=== PATIENT | male | born 1970 | race Hispanic/Latino ===

== ENCOUNTER 2017-08-12 22:36 | Emergency (ER) | payer OTHER ==
[~2017-08-12] VITALS: Ht 180.3 cm; Wt 116.1 kg
[2017-08-12] MEDS ORDERED: SODIUM CHLORIDE 0.9% 1000ML 1,000 ML IV STA (23:07)
[2017-08-12] MEDS ORDERED: GLIMEPIRIDE2 MG PO (23:12)
[2017-08-12] MEDS ORDERED: METFORMIN HCL500 MG PO (23:12)
[2017-08-12] MEDS ORDERED: COLACE100 MG PO (23:12)
[2017-08-12] MEDS ORDERED: PANTOPRAZOLE SO40 MG PO (23:12)
[2017-08-12] MEDS ORDERED: LORAZEPAM0.5 MG PO (23:12)
[2017-08-12] MEDS ORDERED: ECOTRIN81 MG (23:12)
[2017-08-12] MEDS ORDERED: GABAPENTIN300 MG PO (23:12)
[2017-08-12] MEDS ORDERED: ATORVASTATIN CA20 MG PO (23:12)
[2017-08-12] MEDS ORDERED: METOCLOPRAMIDE HCL 10 MG/2ML VIAL IV ONE (23:30)
== END 2017-08-13 00:55 | disposition home or self-care (01) ==
LOC: FSED 22:36
DX: R11.2 Nausea with vomiting, unspecified (principal); R10.9 Unspecified abdominal pain; R19.7 Diarrhea, unspecified; E86.9 Volume depletion, unspecified; K52.9 Noninfective gastroenteritis and colitis, unspecified; A04.4 Other intestinal Escherichia coli infections
CPT/HCPCS: 74177; 80053; 81003; 85025; 99284; J2765; J7030

== ENCOUNTER 2019-05-29 16:27 | Emergency (ER) | payer OTHER ==
[~2019-05-29] VITALS: Ht 180.3 cm; Wt 102.1 kg
[~2019-05-29 16:27] MED LIST: ATORVASTATIN CA20 MG PO; COLACE100 MG PO; ECOTRIN81 MG; GABAPENTIN300 MG PO; GLIMEPIRIDE2 MG PO; LORAZEPAM0.5 MG PO; METFORMIN HCL500 MG PO; PANTOPRAZOLE SO40 MG PO
--- OUTSIDE RECORDS SUMMARY | 2019-05-29 16:32 | XMS REPORT | Summary of Care ---
Author Author [facility] Organization [facility] Address Unknown Phone Unavailable Care Team Providers Care Tool Repairer Name Role Phone PCP Unavailable Reason for Visit * Reason Comments Annual Exam * Consult, Test & Treat (Routine) Referred By Contact Referred To Contact Status Reason Specialty Diagnoses / Procedures Referral, Self Tanja Harrison OD [address] [place] [address] Authorization Optometry / Diagnoses Not Needed Ophthalmology annual eye exam, eyemed annual eye exam, eyemed P rocedures [id number] Encounter Details Care Team Description Date Type Department Tanja Harrison OD [address] [place] [address] Annual Exam 12/21/2018 Office Visit [facility] Ophthalmology [address] [place] [id number] Allergies No Known Allergiesdocumented as of this encounter (statuses as of 12/21/2018) Medications End Date Status Medication Sig Dispensed Refills Start Date Active metformin (GLUCOPHAGE) 0 500 MG tablet 8 Active lisinopril (PRINIVIL, 0 ZESTRIL) 10 MG tablet 8 Active atorvastatin (LIPITOR) 40 0 MG tablet 8 Active gabapentin (NEURONTIN) 0 600 MG tablet 8 Active glyBURIDE (DIABETA) 5 MG 0 tablet 8 Active ONETOUCH DELICA LANCETS 0 33G MISC 8 Active methocarbamol (ROBAXIN) 0 750 MG tablet 8 Active Naproxen Sodium 375 MG 0 TB24 8 Active pantoprazole (PROTONIX) 0 40 MG tablet 8 Active lidocaine (XYLOCAINE) 5 % 0 ointment 8 Active betamethasone valerate Pea sized 1 Tube 2 (VALISONE) 0.1 % ointment amount to 9 affected area twice daily Active Insulin Detemir (LEVEMIR 0 FLEXTOUCH) 100 UNIT/ML 9 SOPN Active metformin (GLUCOPHAGE) 0 1000 MG tablet 9 documented as of this encounter (statuses as of 12/21/2018) Active Problems Not on filedocumented as of this encounter (statuses as of 12/21/2018) Social History Date Tobacco Use Types Packs/Day Years Used Unknown If Ever Smoked Smokeless Tobacco: Current User Drinks/Week oz/Week Comments Alcohol Use Yes Alcohol Habits Answer Date Recorded How often do you have a drink containing alcohol? 2-4 times a month 11/10/2018 How many drinks containing alcohol do you have on Not asked a typical day when you are drinking? How often do you have six or more drinks on one Not asked occasion? Sex Assigned at Date Recorded Not on file Industry Job Start Date Occupation Not on file Not on file Not on file Travel End Travel History Travel Start No recent travel history available. documented as of this encounter Last Filed Vital Signs Not on filedocumented in this encounter Progress Notes * Tanja Harrison, OD - 12/21/2018 9:45 AM [facility] Ophthalmology Service OPTOMETRY PROGRESS NOTE 48 y.o. male presented to clinic with complaints of: diabetic eye exam, eye stra in looking at near and distance STUDY/STUDIES: none ASSESSMENT/PLAN: Patient educated on all exam findings below: 1. Myopia with astigmatism and Presbyopia - bifocals recommended 2. Diabetes mellitus type 2 without retinopathy OU - stressed ophthalmological goal of <7% A1c - monitor 3. Lattice degeneration of peripheral retina, left - minimal laser barricade inferiorly - retina intact 360 - RD precautions given, monitor 4. Vitreous tuft OD - no more traction - denies photopsia - monitor - Return to clinic in 1 year/PRN or sooner if any increase in flashes/floater s or sudden loss of vision. ATTESTATIONS: I have reviewed the PMH, SH, FHX, ROS, MEDS, ALLERGIES and TECH NOTE, and have u pdated the computerized patient record appropriately. The risks, benefits, and alternatives of treatment were discussed with the patie nt (& family, if present). All questions regarding diagnosis and treatment were answered to the patient's satisfaction. Tanja Harrison OD Glossary of eye terms: OD=right eye; OS=left eye, OU=both eyes K DYER documented in this encounter Plan of Treatment Care Team Description Date Type Specialty Roosevelt Mcdermott MD [address] [place] [address] 12/21/2018 Office Visit Urology Health Maintenance Due Date Last Done Comments TETANUS SHOT (ADULT) 1984 BMI FOLLOW UP PLAN 06/28/1987 HIV SCREENING 06/28/1987 FLU VACCINE > 6 MONTHS 09/14/2018 documented as of this encounter Results Not on filedocumented in this encounter Visit Diagnoses Diagnosis Diabetes mellitus type 2 without retinopathy (HCCode) - Primary Type II or unspecified type diabetes mellitus without mention of complication, not stated as uncontrolled Lattice degeneration of peripheral retina, left Lattice degeneration of peripheral retina Myopia of both eyes with astigmatism and presbyopia documented in this encounter Insurance Type Payer Benefit Subscriber ID Effective Phone Address Plan / Dates Group HMO [employer] EYEMED xxxxxxxxxxx Effective [address] for [id number] - dates [place], [place] EY[place]ED [id number] V[employer] CARE documented as of this encounter
--- OUTSIDE RECORDS SUMMARY | 2019-05-29 16:32 | XMS REPORT | Summary of Care ---
Author Author [facility] Organization [facility] Address Unknown Phone Unavailable Care Team Providers Care Preschool Teacher'S Assistant Name Role Phone PCP Unavailable Reason for Visit * Reason Comments Sexual Problems Encounter Details Care Team Description Date Type Department Roosevelt Mcdermott MD [address] [facility] [address] [place] [address] Sexual Problems 11/10/2018 Office Visit [facility] Urology [address] [facility] [place], [facility] [address] [place] [phone] Allergies No Known Allergiesdocumented as of this encounter (statuses as of 11/10/2018) Medications End Date Status Medication Sig Dispensed [...] amount to 9 affected area twice daily documented as of this encounter (statuses as of 11/10/2018) Active Problems Not on filedocumented as of this encounter (statuses as of 11/10/2018) Social History Date Tobacco Use Types Packs/Day Years Used Unknown If Ever Smoked Smokeless Tobacco: Current User Tobacco Cessation: Ready to Quit: No Drinks/Week oz/Week Comments Alcohol Use Yes Alcohol [...] of this encounter Last Filed Vital Signs Reading Time Taken Comments Vital Sign 129/80 11/10/2018 10:35 AM CDT Blood Pressure 64 11/10/2018 10:35 AM CDT Pulse - - Temperature - - Respiratory Rate - - Oxygen Saturation - - Inhaled Oxygen Concentration 108.9 kg (240 lb) 11/10/2018 10:35 AM CDT Weight 180.3 cm (5' 11") 11/10/2018 10:35 AM CDT Height 33.47 11/10/2018 10:35 AM CDT Body Mass Index documented in this encounter Progress Notes * Reba Cast LVN - 11/10/2018 11:14 AM CDT Pt scheduled for circumcision @ [facility] on will call with surgery date. 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 male who presents to me for evaluation of phimosis Uncircumcised, reports pain with sexual intercourse with . Unable to retract foreskin. Gets abrasions with intercourse. No history of STIs. Ongoing for year s. Unable to see glans penis, even with erections. No hematuria, no dysuria. Insulin dependent diabetic -- hemoglobin A1c was 10 in August 2018, now on insulin . Needs A1c <8 prior to considering circumcision -- will do steroid cream for now PMH: Past Medical History: Diagnosis Date Diabetes mellitus (HCCode) GERD (gastroesophageal reflux disease) High cholesterol Hypertension PTSD (post-traumatic stress disorder) PSH: Hand Surgery Back Surgery Neck surgery Medications: Current Outpatient Medications: atorvastatin (LIPITOR) 40 MG tablet, , Disp: , Rfl: gabapentin (NEURONTIN) 600 MG tablet, , Disp: , Rfl: glyBURIDE (DIABETA) 5 MG tablet, , Disp: , Rfl: lidocaine (XYLOCAINE) 5 % ointment, , Disp: , Rfl: lisinopril (PRINIVIL, ZESTRIL) 10 MG tablet, , Disp: , Rfl: metformin (GLUCOPHAGE) 500 MG tablet, , Disp: , Rfl: methocarbamol (ROBAXIN) 750 MG tablet, , Disp: , Rfl: Naproxen Sodium 375 MG TB24, , Disp: , Rfl: ONETOUCH DELICA LANCETS 33G MISC, , Disp: , Rfl: pantoprazole (PROTONIX) 40 MG tablet, , Disp: , Rfl: Outpatient Medications Prior to Visit Medication Sig Dispense Refill atorvastatin gabapentin glyBURIDE lidocaine lisinopril metformin methocarbamol Naproxen Sodium ONETOUCH DELICA LANCETS 33G pantoprazole No facility-administered medications prior to visit. Insulin Social Hx: Social History Socioeconomic History Marital status: Spouse name: Not on file Number of children: Not on file Years of education: Not on file Highest education level: Not on file Occupational History Not on file Social Needs Financial resource strain: Not on file Food insecurity: Worry: Not on file Inability: Not on file Transportation needs: Medical: Not on file Non-medical: Not on file Tobacco Use Smoking status: Unknown If Ever Smoked Smokeless tobacco: Current User Substance and Sexual Activity Alcohol use: Yes Frequency: 2-4 times a month Drug use: Not on file Sexual activity: Not on file Lifestyle Physical activity: Days per week: Not on file Minutes per session: Not on file Stress: Not on file Relationships Social connections: Talks on phone: Not on file Gets together: Not on file Attends jew service: Not on file Active member of club or organization: Not on file Attends meetings of clubs or organizations: Not on file Relationship status: Not on file Intimate partner violence: Fear of current or ex partner: Not on file Emotionally abused: Not on file Physically abused: Not on file Forced sexual activity: Not on file Other Topics Concerns: Not on file Social History Narrative Not on file Social History Occupational History Not on file FHx: family history is not on file. Allergy: No Known Allergies Review of Systems: GENERAL: Denies recent weight changes, fever, weakness, fatigue, headaches INTEGUMENTARY: Denies rashes, eruptions, dryness, jaundice, changes in skin, hair, or nails, di scoloration of skin. EYES: Denies blurred vision, double vision, pain EARS, NOSE, MOUTH AND THROAT: Denies soreness and/or redness of gums, hoarseness, difficulty in swallowing, he ad colds, discharges, obstruction, postnasal drip, sinus pain, earaches. MUSCULOSKELATAL: Denies joint pain, neck pain, back pain RESPIRATORY: Denies chest pain, wheezing, cough, difficulty breathing, asthma, bronchitis, pn eumonia, tuberculosis, shortness of breath, emphysema NEUROLOGIC: Denies fainting, blackouts, seizures, paralysis, tingling, tremors, memory loss, dizzy spells, stroke CARDIOVASCULAR: Denies chest pain, rheumatic fever, rapid heart beat, high blood pressure, swell ing, dizziness, faintness, varicose veins, heart valve problems. ENDOCRINE: Denies thyroid trouble, fatigue, heat and cold intolerance, excessive sweating, thirst, hunger GASTROINTESTINAL: Denies nausea, vomiting, diarrhea, constipation, indigestion, food intolerance, hemorrhoids, jaundice, heartburn, diabetes, hepatitis GENITOURINARY: As per HPI HEMATOLOGIC/LYMPHATIC: Denies anemia, easy bruising or bleeding, past transfusion, swollen glands, bloo d clotting problems PSYCHOLOGIC: Denies nervousness, mood swings, insomnia, headaches, nightmares, depression ALLERGY/IMMUNOLOGIC: Denies food allergies, plant allergies, environmental allergies OTHER: Denies HIV/AIDS Physical Exam: Vitals: 11/10/18 1035 BP: 129/80 BP Location: left arm Patient Position: Sitting Cuff Size: large Pulse: 64 Weight: 240 lb (108.9 kg) Height: 5' 11" (1.803 m) GENERAL: Well developed, well nourished, in no acute distress HEAD: Normocephalic and atraumatic CHEST Regular respiratory rate CV Regular rate and rhythm ABDOMEN: Abdomen soft and non-tender without masses, BACK: No CVAT GENITALIA: Testis descended bilaterally, testicular size 14 cc bilaterally, no varico cheryl palpable, vas deferens and epididymus palpable bilaterally, Uncircumcised phallus with circumferential cicatrix at distal foreskin, meatus in normal anato lloyd location but unable to visualize 90% of glans EXTREMITIES: No clubbing, cyanosis, edema, or deformity SKIN: Intact without lesions or rashes NEURO: [place] well. Patient alert and oriented x3. PSYCH: Alert and cooperative; normal mood and affect; normal attention span and con centration Most Recent Labs: No results found for this or any previous visit (from the past 4032 hour(s)). Most Recent Imaging: No images are attached to the encounter. Plan: Encounter Diagnosis and Orders ICD-10-CM 1. Redundant prepuce and phimosis N47.8 N47.1 Phimosis, insulin dependent diabetic with A1c 10 in August 2018 -steroid cream x6 weeks, reeval in 8 weeks -circumcision once A1c <8 -- will bring results of most recent lab tests at next visit -work on weight loss, diet, exercise documented in this encounter Plan of Treatment Care Team Description Date Type Specialty Roosevelt Mcdermott MD [address] [place] [address] 12/21/2018 Office Visit Urology Health Maintenance Due Date Last Done Comments TETANUS SHOT (ADULT) 1984 HIV SCREENING 06/28/1987 FLU VACCINE > 6 MONTHS 09/14/2018 documented as of this encounter Results Not on filedocumented in this encounter Visit Diagnoses Diagnosis Redundant prepuce and phimosis - Primary documented in this encounter Insurance Type Payer Benefit Subscriber ID Effective Phone Address Plan / Dates Group EPO [facility] VALUE EPO xxxxxxxxx 2017-P [address] [place] [address] [employer] [facility] [place] [address] documented as of this encounter
--- NOTE | 2019-05-29 17:34 | Diagnostic Imaging Report ---
Examination: CT head without contrast Clinical Indication: Fall with head injury. Technique: Transaxial noncontrast images from the skull base through the vertex were obtained. Sagittal and coronal reformatted images were done. Dose modulation, iterative reconstruction, and/or weight based adjustment of the mA/kV was utilized to reduce the radiation dose to as low as reasonably achievable. Comparison: None. Findings: Scalp: No abnormalities. Bones: Intact. No fractures. No blastic or lytic lesions. Brain sulci: Appropriate for patient's age. Ventricles: Normal in size and configuration. No hydrocephalus. Extra-axial space: No abnormalities. Parenchyma: No abnormal densities. No masses, hemorrhage, or acute or chronic cortical based vascular insults. Suprasellar region: No abnormalities. Craniocervical junction: The foramen magnum is patent. No Chiari one malformation. Impression: No intracranial abnormality. Signed by: Dr. Guerline Thomas M.D. on 05/29/2019 5:30 PM
--- NOTE | 2019-05-29 17:54 | Diagnostic Imaging Report ---
EXAM: CT Abdomen and Pelvis WITHOUT contrast INDICATION: Right-sided abdominal pain. Fall COMPARISON: None. TECHNIQUE: Abdomen and pelvis were scanned utilizing a multidetector helical scanner from the lung base to the pubic symphysis without administration of IV contrast. Absence of intravenous contrast decreases sensitivity for detection of focal lesions and vascular pathology. Coronal and sagittal reformations were obtained. Routine protocol was performed. IV CONTRAST: None ORAL CONTRAST: None COMPLICATIONS: None RADIATION DOSE: Total DLP: ... mGy*cm Estimated effective dose: (DLP x 0.015 x size factor) mSv CTDIvol has been reviewed. It is below the limits set by the Radiation Protocol Committee (RPC). Dose modulation, iterative reconstruction, and/or weight based adjustment of the mA/kV was utilized to reduce the radiation dose to as low as reasonably achievable. FINDINGS: LINES and TUBES: None. LOWER THORAX: Unremarkable HEPATOBILIARY: No focal hepatic lesions. No biliary ductal dilation. GALLBLADDER: Cholecystectomy SPLEEN: No splenomegaly. PANCREAS: No focal masses or ductal dilatation. ADRENALS: No adrenal nodules KIDNEYS/URETERS: No hydronephrosis. No cystic or solid mass lesions. No stones. GI TRACT: No abnormal distention, wall thickening, or evidence of bowel obstruction. Appendix is normal. PELVIC ORGANS/BLADDER: Unremarkable. LYMPH NODES: No lymphadenopathy. VESSELS: Unremarkable. PERITONEUM / RETROPERITONEUM: No free air or fluid. BONES: Unremarkable. SOFT TISSUES: Likely small sebaceous cyst in the posterior superficial right mid back region. IMPRESSION: 1. No acute CT abnormality in the abdomen or pelvis. Signed by: Dr. Jc Rosenthal M.D. on 05/29/2019 5:50 PM
--- NOTE | 2019-05-29 17:56 | Diagnostic Imaging Report ---
Radiographs of the right shoulder HISTORY: Pain COMPARISON: None available. FINDINGS: Bones: No acute displaced fracture. Osseous alignment is within normal limits. Joints: Scattered degenerative change. No osseous erosion Soft tissues: The soft tissues appear unremarkable. IMPRESSION: Scattered degenerative change. No osseous erosion Signed by: Dr. Jc Rosenthal M.D. on 05/29/2019 5:53 PM
--- NOTE | 2019-05-29 17:56 | Diagnostic Imaging Report ---
Radiographs of the RIBS with chest x-ray HISTORY: Pain COMPARISON: None available. FINDINGS: Bones: No acute displaced fracture. Osseous alignment is within normal limits. Joints: Scattered degenerative change. No osseous erosion. No rib abnormality. Soft tissues: No consolidated pneumonia, pleural effusion or pneumothorax. Surgical hardware over the lower cervical spine. IMPRESSION: Scattered degenerative change. No osseous erosion. No rib abnormality. Signed by: Dr. Jc Rosenthal M.D. on 05/29/2019 5:52 PM
--- NOTE | 2019-05-29 18:02 | Diagnostic Imaging Report ---
Radiographs of the right right hand. Radiographs of the right wrist. HISTORY: Pain COMPARISON: None available. FINDINGS: Bones: No acute displaced fracture. Osseous alignment is within normal limits. Joints: Scattered degenerative change. No osseous erosion Soft tissues: The soft tissues appear unremarkable. IMPRESSION: Scattered degenerative change. No osseous erosion Signed by: Dr. Jc Rosenthal M.D. on 05/29/2019 5:59 PM
--- NOTE | 2019-05-29 18:08 | Diagnostic Imaging Report ---
Radiographs of the right elbow HISTORY: Pain COMPARISON: None available. FINDINGS: Bones: No acute displaced fracture. Osseous alignment is within normal limits. Joints: Scattered degenerative change. No osseous erosion Soft tissues: The soft tissues appear unremarkable. IMPRESSION: Scattered degenerative change. No osseous erosion Signed by: Dr. Jc Rosenthal M.D. on 05/29/2019 6:05 PM
--- NOTE | 2019-05-29 18:09 | Diagnostic Imaging Report ---
Radiographs of the right knee HISTORY: Pain COMPARISON: None available. FINDINGS: Bones: No acute displaced fracture. Osseous alignment is within normal limits. Joints: Scattered degenerative change. No osseous erosion Soft tissues: The soft tissues appear unremarkable. IMPRESSION: Scattered degenerative change. No osseous erosion Signed by: Dr. Jc Rosenthal M.D. on 05/29/2019 6:05 PM
--- NOTE | 2019-05-29 19:03 | Diagnostic Imaging Report ---
Examination: CT C-SPINE W/O - HOPD HISTORY:Neck pain and injury after fall. COMPARISON:None. TECHNIQUE: Multidetector helical axial images were obtained without contrast from the foramen magnum to T1. Coronal and sagittal reformatted images were done. Bone and soft tissue windows were evaluated. Dose modulation, iterative reconstruction, and/or weight based adjustment of the mA/kV was utilized to reduce the radiation dose to as low as reasonably achievable. FINDINGS: Alignment:Normal alignment and lordosis. Vertebrae: Normal height and density. No acute fracture, infection or neoplasm. Prior anterior discectomy and fusion from C5-C7. Anterior osteophyte at C4-C5. No hardware failure.. Disc space heights: Normal height. Caliber of spinal canal: Developmentally normal. Posterior fossa and craniocervical junction: Foramen magnum patent. No Chiari 1 malformation. Soft tissues: No abnormality. Degenerative changes: No disc herniation or foraminal or canal stenosis. Visualized lung apices: No abnormalities. IMPRESSION: 1. No acute abnormalities. 2. Prior anterior discectomy and fusion from C5-C7. No hardware failure. Signed by: Dr. Guerline Thomas M.D. on 05/29/2019 7:00 PM
== END 2019-05-29 19:30 | disposition home or self-care (01) ==
LOC: FSED 16:27
DX: S00.83XA Contusion of other part of head, initial encounter (principal); S16.1XXA Strain of muscle, fascia and tendon at neck level, initial encounter; S30.1XXA Contusion of abdominal wall, initial encounter; S40.011A Contusion of right shoulder, initial encounter; S50.01XA Contusion of right elbow, initial encounter; S60.211A Contusion of right wrist, initial encounter; S60.221A Contusion of right hand, initial encounter; S70.01XA Contusion of right hip, initial encounter; S80.01XA Contusion of right knee, initial encounter; W01.0XXA Fall on same level from slipping, tripping and stumbling without subsequent striking against object, initial encounter; Y92.008 Other place in unspecified non-institutional (private) residence as the place of occurrence of the external cause; I10 Essential (primary) hypertension; E11.9 Type 2 diabetes mellitus without complications
CPT/HCPCS: 70450; 71101; 72125; 74176; 80048; 81003; 85025; 99283